=== PATIENT | female | born 1970 | race Caucasian/White ===

== ENCOUNTER 2019-08-29 11:00 | Emergency (ER) | payer OTHER | END 2019-08-29 11:41 | disposition home or self-care (01) | LOC: MADERS 11:00 | DX: M54.5 Low back pain (principal); R05 Cough; F32.9 Major depressive disorder, single episode, unspecified; M19.90 Unspecified osteoarthritis, unspecified site | CPT/HCPCS: 99283 ==

== ENCOUNTER 2022-08-22 16:51 | Emergency (ER) | payer OTHER ==
[2022-08-22] MEDS ORDERED: Ibuprofen 600 MG TAB ONE (17:33)
[2022-08-22] MEDS ORDERED: Lidocaine 1% (PF) 30 ML VIAL ONE (17:46)
== END 2022-08-22 18:00 | disposition home or self-care (01) ==
LOC: MADERS 16:51
DX: S62.337A Displaced fracture of neck of fifth metacarpal bone, left hand, initial encounter for closed fracture (principal); W22.01XA Walked into wall, initial encounter
CPT/HCPCS: 26605; J2001